=== PATIENT | female | born 1985 | race Caucasian/White ===

== ENCOUNTER 2022-04-26 11:14 | Inpatient (IN) | payer OTHER ==
[2022-04-26] MEDS ORDERED: SODIUM CHLORIDE 0.9% 1,000 ML IV STA (11:31)
[2022-04-26] MEDS ORDERED: SODIUM CHLORIDE 0.9% 1,000 ML IV ONE (11:32)
--- NOTE | 2022-04-26 11:53 | ED ---
General Adult HPI - General Source: patient, RN notes reviewed Mode of arrival: ambulatory Limitations: no limitations <Mila Case - Last Filed: 04/26/22 19:02> <Ashley Corrales - Last Filed: 04/27/22 04:01> <Tanner Rojas - Last Filed: 04/27/22 07:37> - General Chief complaint: Alcohol Stated complaint: sent by [facility] to sober up Time Seen by Provider: 04/26/22 11:30 - History of Present Illness Initial comments: 36 year old female with past medical history of Etoh abuse presents for the emergency department for alcohol withdrawal. She reports she attempted to check into [facility], however they did not want to accept her due to her alcohol level being above 300. She reports she has tried to withdrawal twice before without success. She denies alcohol withdrawal seizures, auditory/visual hallucinations. She admits to drinking 1/4 of a fifth of [employer]. She typically drinks a fifth a day. Denies any other recreational drugs. Denies homicidal/suicidal thoughts. (Mila Case) - Related Data Home Medications Medication Instructions Recorded Confirmed No Known Home Medications 04/26/22 04/26/22 Allergies Allergy/AdvReac Type Severity Reaction Status Date / Time No Known Allergies Allergy Verified 04/26/22 14:13 Review of Systems ROS Other: All systems not noted in ROS Statement are negative. <Mila Case - Last Filed: 04/26/22 19:02> ROS Other: All systems not noted in ROS Statement are negative. <Ashley Corrales - Last Filed: 04/27/22 04:01> ROS Other: All systems not noted in ROS Statement are negative. <Tanner Rojas - Last Filed: 04/27/22 07:37> ROS Statement: Those systems with pertinent positive or pertinent negative responses have been documented in the HPI. Past Medical History Past Medical History: No Reported History History of Any Multi-Drug Resistant Organisms: None Reported Past Surgical History: Tonsillectomy Additional Past Surgical History / Comment(s): septoplasty. Past Psychological History: No Psychological Hx Reported, Anxiety Smoking Status: Never smoker Past Alcohol Use History: Daily, Heavy Past Drug Use History: Prescription Drug Abuse <Mila Case - Last Filed: 04/26/22 19:02> - Past Family History Mother Family Medical History: Liver Disease <Tanner Rojas - Last Filed: 04/27/22 07:37> General Exam Limitations: no limitations General appearance: alert, in no apparent distress Head exam: Present: atraumatic, normocephalic, normal inspection Eye exam: Present: normal appearance, PERRL, EOMI. Absent: scleral icterus, conjunctival injection, periorbital swelling ENT exam: Present: normal exam, mucous membranes moist Neck exam: Present: normal inspection. Absent: tenderness, meningismus, lymphadenopathy Respiratory exam: Present: normal lung sounds bilaterally. Absent: respiratory distress, wheezes, rales, rhonchi, stridor Cardiovascular Exam: Present: normal rhythm, tachycardia, normal heart sounds. Absent: systolic murmur, diastolic murmur, rubs, gallop, clicks GI/Abdominal exam: Present: soft, normal bowel sounds. Absent: distended, tenderness, guarding, rebound, rigid Extremities exam: Present: normal inspection Back exam: Present: normal inspection Neurological exam: Present: alert, oriented X3, CN II-XII intact Psychiatric exam: Present: normal affect, normal mood <Mila Case - Last Filed: 04/26/22 19:02> Limitations: altered mental status General appearance: in distress Head exam: Present: atraumatic, normocephalic, normal inspection Eye exam: Present: normal appearance, PERRL, EOMI. Absent: scleral icterus, conjunctival injection, periorbital swelling ENT exam: Present: normal exam, mucous membranes moist Neck exam: Present: normal inspection. Absent: tenderness, meningismus, lymphadenopathy Respiratory exam: Present: normal lung sounds bilaterally, respiratory distress. Absent: wheezes, rales, rhonchi, stridor Cardiovascular Exam: Present: tachycardia, normal heart sounds. Absent: systolic murmur, diastolic murmur, rubs, gallop, clicks GI/Abdominal exam: Present: soft, normal bowel sounds. Absent: distended, tenderness, guarding, rebound, rigid Extremities exam: Present: normal inspection, full ROM, normal capillary refill. Absent: tenderness, pedal edema, joint swelling, calf tenderness Back exam: Present: normal inspection Psychiatric exam: Present: normal affect, normal mood Skin exam: Present: warm, dry, intact, normal color. Absent: rash <Tanner Rojas - Last Filed: 04/27/22 07:37> Course <Tanner Rojas - Last Filed: 04/27/22 07:37> Vital Signs 04/26/22 04/26/22 04/26/22 11:22 16:50 22:12 Temperature 98 F Pulse Rate 130 H 112 H 114 H Respiratory 18 18 16 Rate Blood Pressure 149/99 149/113 150/114 O2 Sat by Pulse 95 96 98 Oximetry 04/27/22 04:00 Temperature Pulse Rate 82 Respiratory 20 Rate Blood Pressure 153/103 O2 Sat by Pulse 98 Oximetry - Reevaluation(s) Reevaluation #1: 04/27/22 07:27 Medical record is reviewed (Tanner Rojas) Reevaluation #2: 04/27/22 07:27 Patient has cardiac arrest in the emergency department I did intubate patient at the bedside Patient is found to be in ventricular fibrillation, cardiac arrest Patient is undergoes ACLS here in the emergency department Patient is placed on epinephrine and Levothroid to keep blood pressure Patient is accepted in the ICU (Tanner Rojas) - Consultations Consultation #1: ICU accepts the patient for admission secondary to cardiac arrest (Tanner Henry) Procedures - Intubation Laryngoscope: Leticia Size: 4 ET Tube Size: 7.5 ET Tube Uncuffed: No Tube Secured Location: teeth Tube Placement Confirmation: visualized tube passing through cords, equal breath sounds bilaterally, no breath sounds over epigastrium, confirmation by cap nometry Patient Tolerated Procedure: well Intubation Complications: none <Tanner Rojas - Last Filed: 04/27/22 07:37> Medical Decision Making - Lab Data Result diagrams: 04/26/22 12:02 04/26/22 12:02 <Mila Case - Last Filed: 04/26/22 19:02> - Lab Data Result diagrams: 04/26/22 12:02 04/26/22 12:02 <Ashley Corrales - Last Filed: 04/27/22 04:01> - Lab Data Result diagrams: 04/26/22 12:02 04/26/22 12:02 - Radiology Data Radiology results: report reviewed (Chest x-ray shows positive ET tube), image reviewed <MagalisyanickTanner Larry - Last Filed: 04/27/22 07:37> - Medical Decision Making Pt signed to Dr. Rivera for continuation of care. (Mila Case) Case signed out to myself at shift change. Was pt. sent in by a medical professional or institution? @ -No Did you speak to anyone other than the patient for history? @ -No Did you review nursing and triage notes? @ -Agree, accurate with regards to the patient's symptoms. Were old charts reviewed? @ -No Differential Diagnosis? @ --Sympathomimetic syndrome, alcohol intoxication, overdose, anti-muscarinic syndrome, serotonin syndrome, neuroleptic malignant syndrome, thyrotoxicosis, encephalitis, acute psychosis, hypoglycemia, trauma, sepsis. This is not meant to be an all-inclusive list. What testing was considered but not performed? (CT, X-rays, U/S, labs)? Why? @ -None What meds were considered but not given? Why? @ -None Did you discuss the management of the patient with other professionals? @ -Case discussed with Dr. Jeffries, who accepts the patient for admission. Did you reconcile home meds? @ -Yes Was critical care preformed (if so, how long)? @ -No Were there social determinants of health that impacted care today? How? (Homelessness, low income, unemployed, alcoholism, drug addiction, transportation, low edu. Level, literacy, decrease access to med. care, fci, rehab)? @ -Alcoholism, drug addiction Was there de-escalation of care discussed even if they declined? (Discuss DNR or withdrawal of care, Hospice)? @ -No What co-morbidities impacted this encounter? (DM, HTN, Smoking, COPD, CAD, Cancer, CVA, Hep., AIDS, mental health diagnosis, sleep apnea, morbid obesity)? @ -Polysubstance abuse Was patient admitted / discharged? @ -After I took over the patient, she continued to have tremors with active nausea and vomiting. She was sober at 2350 on 04/26. We had initially planned on having [facility] pick her up at 7 AM on 04/27 so she could be officially marilee stered and checked in for treatment. However, the patient continued to need to decline in terms of her withdrawal symptoms. Her CIWA score remained around 13- 14. Based on her deterioration and difficulty with controlling her symptoms, patient admitted to medicine for detox management. CIWA protocol remains in place. Drug Therapy requiring intensive monitoring for toxicity (Heparin, Nitro, Insulin, Cardizem)? @ -None Were any procedures done? @ -None Diagnosis/symptom? @ -alcohol withdrawals Acute, or Chronic, or Acute on Chronic? @ -acute Uncomplicated (without systemic symptoms) or Complicated (systemic symptoms)? @ -complicated Side effects of treatment? @ -Poor response or worsening of symptoms. Exacerbation, Progression, or Severe Exacerbation] @ -Not applicable Poses a threat to life or bodily function? @ -Yes (Ashley Corrales) 36 female admitted for significant alcohol withdrawal, delirium tremens. Patient did go into ventricular fibrillation arrest, was resuscitated according to ACLS, intubated and will be transferred to the ICU for further. (Tanner Rojas) - Lab Data Lab Results 04/26/22 04/26/22 04/26/22 Range/Units 12:02 12:02 12:02 WBC 5.8 (3.8-10.6) k/uL RBC 4.89 (3.80-5.40) m/uL Hgb 14.4 (11.4-16.0) gm/dL Hct 43.0 (34.0-46.0) % MCV 87.9 (80.0-100.0) fL MCH 29.4 (25.0-35.0) pg MCHC 33.4 (31.0-37.0) g/dL RDW 15.0 (11.5-15.5) % Plt Count 249 (150-450) k/uL MPV 7.8 Neutrophils % 69 % Lymphocytes % 22 % Monocytes % 5 % Eosinophils % 1 % Basophils % 2 % Neutrophils # 4.0 (1.3-7.7) k/uL Lymphocytes # 1.3 (1.0-4.8) k/uL Monocytes # 0.3 (0-1.0) k/uL Eosinophils # 0.0 (0-0.7) k/uL Basophils # 0.1 (0-0.2) k/uL Sodium 147 H (137-145) mmol/L Potassium 4.1 (3.5-5.1) mmol/L Chloride 102 (98-107) mmol/L Carbon Dioxide 29 (22-30) mmol/L Anion Gap 16 mmol/L BUN 10 (7-17) mg/dL Creatinine 0.65 (0.52-1.04) mg/dL Est GFR (CKD-EPI)AfAm >90 (>60 ml/min/1.73 sqM) Est GFR (CKD-EPI)NonAf >90 (>60 ml/min/1.73 sqM) Glucose 123 H (74-99) mg/dL Calcium 8.5 (8.4-10.2) mg/dL Magnesium 2.1 (1.6-2.3) mg/dL Total Bilirubin 1.8 H (0.2-1.3) mg/dL AST 488 H (14-36) U/L ALT 63 H (4-34) U/L Alkaline Phosphatase 342 H (38-126) U/L Total Protein 8.9 H (6.3-8.2) g/dL Albumin 5.0 (3.5-5.0) g/dL Urine Opiates Screen Not Detected (NotDetected) Ur Oxycodone Screen Not Detected (NotDetected) Urine Methadone Screen Not Detected (NotDetected) Ur Propoxyphene Screen Not Detected (NotDetected) Ur Barbiturates Screen Not Detected (NotDetected) U Tricyclic Antidepress Not Detected (NotDetected) Ur Phencyclidine Scrn Not Detected (NotDetected) Ur Amphetamines Screen Detected H (NotDetected) U Methamphetamines Scrn Not Detected (NotDetected) U Benzodiazepines Scrn Detected H (NotDetected) Urine Cocaine Screen Not Detected (NotDetected) U Marijuana (THC) Screen Detected H (NotDetected) Critical Care Time Critical Care Time: Yes Total Critical Care Time: 95 <Tanner Rojas - Last Filed: 04/27/22 07:37> Disposition <Mila Case - Last Filed: 04/26/22 19:02> <Ashley Corrales - Last Filed: 04/27/22 04:01> Is patient prescribed a controlled substance at d/c from ED?: No Time of Disposition: 07:35 <Tanner Rojas - Last Filed: 04/27/22 07:37> Clinical Impression: Alcohol withdrawal syndrome, Cardiac arrest, Ventricular fibrillation, Hypotension Disposition: ADMITTED IP TO THIS HOSP Condition: Critical
[2022-04-26 12:22] LABS: Basophils # (A) 0.1 k/uL (0-0.2); Basophils % (A) 2 %; Eosinophils % (A) 1 %; HGB 14.4 gm/dL (11.4-16.0); Lymphocytes # (A) 1.3 k/uL (1.0-4.8); Lymphocytes % (A) 22 %; MCH 29.4 pg (25.0-35.0); MCHC 33.4 g/dL (31.0-37.0); MCV 87.9 fL (80.0-100.0); Mean Platelet Volume 7.8; Monocytes # (A) 0.3 k/uL (0-1.0); Monocytes % (A) 5 %; Neutrophils % (A) 69 %; Platelet Count 249 k/uL (150-450); RBC 4.89 m/uL (3.80-5.40); WBC 5.8 k/uL (3.8-10.6)
[2022-04-26 12:34] LABS: ALT 63 U/L (4-34); African American GFR (CKD) >90 (>60 ml/min/1.73 sqM); Anion Gap 16 mmol/L; Blood Urea Nitrogen 10 mg/dL (7-17); Calcium 8.5 mg/dL (8.4-10.2); Carbon Dioxide 29 mmol/L (22-30); Chloride 102 mmol/L (98-107); Glucose 123 mg/dL (74-99); Non-African American GFR(CKD) >90 (>60 ml/min/1.73 sqM); Sodium 147 mmol/L (137-145); Total Bilirubin 1.8 mg/dL (0.2-1.3); Total Protein 8.9 g/dL (6.3-8.2)
[2022-04-26 12:35] LABS: AST 488 U/L (14-36); Alkaline Phosphatase 342 U/L (38-126); Magnesium 2.1 mg/dL (1.6-2.3); Potassium 4.1 mmol/L (3.5-5.1)
[2022-04-26 12:41] LABS: Amphetamine Screen,Urine Detected (NotDetected); Barbiturate Screen,Urine Not Detected (NotDetected); Benzodiazepines Screen,Urine Detected (NotDetected); Cocaine Screen,Urine Not Detected (NotDetected); Methadone Screen, Urine Not Detected (NotDetected); Opiate Screen,Urine Not Detected (NotDetected); Oxycodone Screen, Urine Not Detected (NotDetected); Phencyclidine Screen,Urine Not Detected (NotDetected); Tricyclic Antidepressant,Urine Not Detected (NotDetected); Urn Cannabinoid Scrn Detected (NotDetected)
[2022-04-26] MEDS ORDERED: IBUPROFEN 600 MG TAB PO STA ×2 (13:48→18:27)
[2022-04-26] MEDS ORDERED: LORazepam 2 MG/ML INJ IV STA (18:37)
[2022-04-26] MEDS ORDERED: ONDANSETRON 4 MG/2 ML VIAL IVP STA (20:24)
[2022-04-26] MEDS ORDERED: LORazepam 1 MG TAB PO PRN (20:42)
[2022-04-26] MEDS ORDERED: THIAMINE 100 MG/ML 2 ML VIAL IM STA (20:42)
[2022-04-26] MEDS ORDERED: LORazepam 2 MG/ML INJ IV PRN ×2 (20:42)
[2022-04-26] MEDS ORDERED: KETOROLAC 15 MG/ML 1 ML VIAL IVP STA (20:43)
[2022-04-26] MEDS: LORazepam 2 MG/ML INJ IV PRN (21:54)
[2022-04-26] MEDS ORDERED: PROPRANOLOL 10 MG TAB PO STA (23:34)
[2022-04-27] MEDS ORDERED: ACETAMINOPHEN IV (For NPO) 1,000 MG in EMPTY BAG 1 BAG IVPB ONE (01:30)
[2022-04-27] MEDS ORDERED: IBUPROFEN 400 MG TAB PO PRN (03:14)
[2022-04-27] MEDS ORDERED: KETOROLAC 15 MG/ML 1 ML VIAL IVP PRN (03:14)
[2022-04-27] MEDS ORDERED: ONDANSETRON 4 MG/2 ML VIAL IVP PRN (03:14)
[2022-04-27] MEDS ORDERED: NALOXONE 0.4 MG/ML 1 ML VIAL IV PRN (03:14)
--- NOTE | 2022-04-27 04:53 | P.HPIM ---
History of Present Illness H&P Date: 04/27/22 Patient is a 36-year-old female with a PMH of EtOH abuse who presents to the emergency room with complaints of alcohol withdrawal. The patient reports that she has been drinking a fifth of hard liquor daily for the past 2 years and that she is currently trying to quit. Reports that her last drink was 2-3 days ago, and that her shakiness and gradually worsened, which prompted her to come to the emergency room. She denied history of delirium tremens or alcohol withdrawal seizures. States that she is only once attempted to quit in the past which was unsuccessful due to worsening shakiness. She denied any additional complaints. He denied experiencing chest discomfort, shortness of breath, fever, chills, cough, nausea, vomiting, abdominal pain, diarrhea. In the emergency room, the patient's pulse upon presentation was 1:30. BP 149/99 and SpO2 95% on room air. EKG had revealed sinus a cardiac oral [address]/T-wave changes noted as reviewed by me. Laboratory evaluation was remarkable for urine tox positive for amphetamines, benzodiazepines, marijuana, and AST 48, ALT 63, total bilirubin 1.8, and sodium 147. Case was discussed in detail with the ED provider. The patient stated that she wishes to go to [facility] following discharge. Review of systems: Pertinent positives and negatives as discussed in HPI, a complete review of systems was performed and all other systems are negative. Physical examination: General: Tremulous female, no distress, appears at stated age, overweight Derm: no unusual rashes/lesions, warm Head: atraumatic, normocephalic, symmetric Eyes: EOMI, no lid lag, anicteric sclera, pupils equal round reactive to light ENT: Nose and ears atraumatic Neck: No cervical lymphadenopathy, trachea midline, supple Mouth: no lip lesion, mucus membranes moist Cardiovascular: S1S2 reg, no murmur, positive dorsalis pedis pulse bilateral, no edema Lungs: CTA bilateral, no rhonchi, no rales, no accessory muscle use Abdominal: soft, nontender to palpation, no guarding Ext: muscle strength 5 out of 5 in all 4 extremities grossly, no gross muscle atrophy, no contractures, Neuro: CN II-XI grossly intact, no gross focal neuro deficits, outstretched hand tremor noted with tongue fasciculations Psych: Alert, oriented, appropriate affect Assessment/plan Alcohol withdrawal -CIWA protocol -IV fluids -Thiamine -Monitor electrolytes -Cardiac monitoring -Fall precautions Polysubstance abuse -Strongly advised on importance of cessation DVT prophylaxis -Heparin subq The patient is admitted with an anticipated greater than 2 midnight stay for ev aluation of EtOH abuse CODE STATUS: Full Code Discussed with: Patient Anticipated discharge date: 2-[address]: [facility] Past Medical History Past Medical History: No Reported History History of Any Multi-Drug Resistant Organisms: None Reported Past Surgical History: Tonsillectomy Additional Past Surgical History / Comment(s): septoplasty. Past Psychological History: No Psychological Hx Reported, Anxiety Smoking Status: Never smoker Past Alcohol Use History: Daily, Heavy Past Drug Use History: Prescription Drug Abuse - Past Family History Mother Family Medical History: Liver Disease Medications and Allergies Home Medications Medication Instructions Recorded Confirmed Type No Known Home Medications 04/26/22 04/26/22 History Allergies Allergy/AdvReac Type Severity Reaction Status Date / Time No Known Allergies Allergy Verified 04/26/22 14:13 Physical Exam Vitals: Vital Signs Temp Pulse Resp BP Pulse Ox 04/27/22 04:00 82 20 153/103 98 04/26/22 22:12 114 H 16 150/114 98 04/26/22 16:50 112 H 18 149/113 96 04/26/22 11:22 98 F 130 H 18 149/99 95 Intake and Output 04/26/22 04/26/22 04/27/22 14:59 22:59 06:59 Other: Weight 72.575 kg Results CBC & Chem 7: 04/26/22 12:02 04/26/22 12:02 Labs: Abnormal Lab Results - Last 24 Hours (Table) 04/26/22 04/26/22 Range/Units 12:02 12:02 Sodium 147 H (137-145) mmol/L Glucose 123 H (74-99) mg/dL Total Bilirubin 1.8 H (0.2-1.3) mg/dL AST 488 H (14-36) U/L ALT 63 H (4-34) U/L Alkaline Phosphatase 342 H (38-126) U/L Total Protein 8.9 H (6.3-8.2) g/dL Ur Amphetamines Screen Detected H (NotDetected) U Benzodiazepines Scrn Detected H (NotDetected) U Marijuana (THC) Screen Detected H (NotDetected)
[2022-04-27 07:06] LABS: Glucose,Whole Blood 117 mg/dL (70-110)
[2022-04-27] MEDS ORDERED: DEXTROSE 5% IN WATER 100 ML with AMIODARONE 150 MG IV ONE (07:07)
[2022-04-27] MEDS ORDERED: DEXTROSE 5% IN WATER 250 ML with AMIODARONE 300 MG IV ONE (07:07)
[2022-04-27] MEDS: NOREPINEPHRINE 4 MG in SODIUM CHLORIDE 0.9% 250 ML IV ONE ×2 (07:15→13:39)
[2022-04-27] MEDS ORDERED: MIDAZOLAM HCL 50 MG in SODIUM CHLORIDE 0.9% 40 ML IV SCH (07:15)
[2022-04-27] MEDS ORDERED: AMIODARONE 360 MG in DEXTROSE 5% IN WATER 200 ML IV ONE ×2 (07:15)
[2022-04-27 07:27] LABS: African American GFR (CKD) >90 (>60 ml/min/1.73 sqM); Anion Gap 15 mmol/L; Blood Urea Nitrogen 4 mg/dL (7-17); Calcium 8.2 mg/dL (8.4-10.2); Carbon Dioxide 23 mmol/L (22-30); Chloride 100 mmol/L (98-107); Glucose 130 mg/dL (74-99); Non-African American GFR(CKD) >90 (>60 ml/min/1.73 sqM); Sodium 138 mmol/L (137-145)
[2022-04-27 07:29] LABS: Potassium 5.6 mmol/L (3.5-5.1)
[2022-04-27] MEDS ORDERED: propofoL 100 ML IV ONE (07:31)
[2022-04-27 07:35] LABS: Glucose,Whole Blood 391 mg/dL (70-110)
--- NOTE | 2022-04-27 07:39 | XR ---
EXAMINATION TYPE: XR chest 1V portable DATE OF EXAM: 04/27/2022 Comparison: None Clinical History: 36-year-old female coded, intubation Findings: ET tube tip 2.7 cm from the va. Heart likely upper limits of normal in size, likely accentuated d ue to portable technique. Mild interstitial prominence probably due to low lung volumes at the time o f exposure. There may be some mild strandy areas of atelectasis. No rosa consolidation, pneumothorax , or pleural effusion. Impression: ET tube tip 2.7 cm from the va, satisfactory. Hypoventilatory changes.
[2022-04-27] MEDS ORDERED: HEPARIN SODIUM,PORCINE/PF 5,000 UNIT/0.5 ML SYRINGE SQ SCH (08:00)
--- NOTE | 2022-04-27 08:06 | XR ---
EXAMINATION TYPE: XR chest 1V portable DATE OF EXAM: 04/27/2022 8:01 AM COMPARISON: Chest radiographs from 04/27/2022 TECHNIQUE: XR chest 1V portable Frontal view of the chest. CLINICAL INDICATION:Female, 36 years old with history of OG Tube placement; FINDINGS: Lungs/Pleura: There is no evidence of pleural effusion, focal consolidation, or pneumothorax. Similar elevation the right hemidiaphragm. Pulmonary vascularity: Unremarkable. Heart/mediastinum: Cardiomediastinal silhouette is unremarkable. Musculoskeletal: No acute osseous pathology. Other findings: None Lines/Tubes: Endotracheal tube with distal tip 5.1 cm above the va OG tube projecting under the diaphragm with distal tip not included on the [id number]. IMPRESSION: 1. OG tube projecting under the diaphragm with distal tip not included on the [id number], likely i n appropriate position. 1. Stable endotracheal tube.
--- NOTE | 2022-04-27 08:13 | P.CNPUL ---
History of Present Illness Consult date: 04/27/22 Chief complaint: cardiac arrest History of present illness: This is a 36-year-old female patient, and alcoholic was trying to admit herself to [facility] for further rehabilitation. The patient drinks a fifth of hard liquor on a daily basis and she's been doing that for many years. She went to [facility] and she was declined and she was sent to our emergency department with acute all: Intoxication. Initially, the patient came to our ED on 04/26/2022 at 11:49 AM. The patient was seen in the emergency department. The patient had stayed in the emergency throughout the day and earlier this morning at around 6:54 AM, the patient was found to be unresponsive. I'm not sure the patient was on the classroom monitor. The patient was initially in asystole. ACLS protocol was done and the patient went into V. fib and PEA and ultimately into sinus bradycardia and the cold lasted for approximately 20 minutes between 6:54 AM and 7:12 AM. There was return of spontaneous circulation. The patient received a total of 4 doses of epinephrine, 1 dose of atropine, 2 doses of bicarb, a total of 450 mg of amiodarone was given and 2 doses of D50 insulin. After arrival to the ICU, the patient was started on propofol as the patient was walking on the 2. Currently she is calm and comfortable. No seizure activity has been noted. No significant secretions from the orotracheal tube. The patient's chest x-ray was done and is essentially clear and the tube is in a good location. She is hemodynamically hypotensive Levothroid is running at 0.1 mcg/kg/m and she is also on normal saline at the rate of 100 mL an hour. She is also on amiodarone at 1 mg/m and Versed drip running at 1 mg an hour. She is on assist-control mode of mechanical ventilation. At this point she is on assist control at the rate of 18, tidal volume of 650, FiO2 of 100% and a PEEP of 5. Blood gas has not been done yet. Urine drug screen was positive for amph etamine, benzodiazepines and marijuana. LFTs were abnormal with elevated AST consistent with alcoholic liver disease. Review of Systems ROS unobtainable: due to endotracheal tube Past Medical History Past Medical History: No Reported History History of Any Multi-Drug Resistant Organisms: None Reported Past Surgical History: Tonsillectomy Additional Past Surgical History / Comment(s): septoplasty. Past Psychological History: No Psychological Hx Reported, Anxiety Smoking Status: Never smoker Past Alcohol Use History: Daily, Heavy Past Drug Use History: Prescription Drug Abuse - Past Family History Mother Family Medical History: Liver Disease Medications and Allergies Home Medications Medication Instructions Recorded Confirmed Type No Known Home Medications 04/26/22 04/26/22 History Allergies Allergy/AdvReac Type Severity Reaction Status Date / Time No Known Allergies Allergy Verified 04/26/22 14:13 Physical Exam Vitals: Vital Signs Temp Pulse Resp BP Pulse Ox FiO2 04/27/22 07:54 100 04/27/22 07:53 100 04/27/22 07:22 69 71/42 04/27/22 07:20 70/30 04/27/22 07:16 51 L 54/37 04/27/22 04:00 82 20 153/103 98 04/26/22 22:12 114 H 16 150/114 98 04/26/22 16:50 112 H 18 149/113 96 04/26/22 11:22 98 F 130 H 18 149/99 95 Patient is sedated intubated on a mechanical ventilator currently on a combination of propofol and Versed. Follow chicken tube and orogastric tube are both in place. Head exam was generally normal. There was no scleral icterus or corneal arcus. Mucous membranes were moist. Neck was supple and without jugular venous distension, thyromegaly, or carotid bruits. Carotids were easily palpable bilaterally. There was no adenopathy. Lungs were clear to auscultation and percussion, and with normal diaphragmatic excursion. No wheezes or rales were noted. Cardiac exam revealed the PMI to be normally situated and sized. The rhythm was regular and no extrasystoles were noted during several minutes of auscultation. The first and second heart sounds were normal and physiologic splitting of the second heart sound was noted. There were no murmurs, rubs, clicks, or gallops. Abdomen is slightly distended. Soft. There is no evidence of any ascites. No direct tenderness or rebound tenderness or guarding. No organomegaly. Examination of the extremities revealed easily palpable radial, femoral and pedal pulses. There was no cyanosis, clubbing or edema. Examination of the skin revealed no evidence of significant rashes, suspicious appearing nevi or other concerning lesions. Neurologically, the patient is heavily sedated with a combination of propofol and Versed. Pupils are unequal. Left pupil is around 4 mm in size, right pupil is round 3 mm in size, no facial asymmetry. There is positive cough reflex and a gag reflex. Motor function cannot be assessed. Sensory functions cannot be assessed. The patient barely withdraws slightly painful stimulation. Babinski's are flat no clonus and reflexes are quite depressed in all 4 e xtremities. Results - Laboratory Findings CBC and BMP: 04/26/22 12:02 04/27/22 06:48 Abnormal lab findings: Abnormal Labs 04/26/22 04/26/22 04/27/22 12:02 12:02 06:48 Sodium 147 H Potassium 5.6 H BUN 4 L Creatinine 0.43 L Glucose 123 H 130 H POC Glucose (mg/dL) Calcium 8.2 L Total Bilirubin 1.8 H AST 488 H ALT 63 H Alkaline Phosphatase 342 H Total Protein 8.9 H Ur Amphetamines Screen Detected H U Benzodiazepines Scrn Detected H U Marijuana (THC) Screen Detected H 04/27/22 04/27/22 06:59 07:34 Sodium Potassium BUN Creatinine Glucose POC Glucose (mg/dL) 117 H 391 H Calcium Total Bilirubin AST ALT Alkaline Phosphatase Total Protein Ur Amphetamines Screen U Benzodiazepines Scrn U Marijuana (THC) Screen - Diagnostic Findings Chest x-ray: image reviewed Assessment and Plan Plan: Acute cardiac arrest, the exact circumstances are not known. The patient presented to the emergency department initially with acute all: Intoxication. The patient was admitted to the hospital 11 AM on 04/26/2022. The cold occurred on 04/27/2022 at around 6:54 AM in the down time it is approximately 20 minutes. During the code, the patient went into asystole, V. fib, and PEA and ultimately sinus bradycardia. Currently hypotensive on pressors. Noted the patient was given a combination of Valium and Ativan in the emergency department at around 2 AM and 4 AM. No seizures have been noted. Acute hypotension post cardiac arrest and the patient is currently on norepinephrine infusion thiamine and folate IV Protonix History of alcoholism Acute alcohol intoxication at time of admission to hospital Mild hyperkalemia with a potassium level of 5.6 from this morning Polysubstance abuse with urine drug screen is positive for benzodiazepines, marijuana and amphetamine. noted the patient also received Ativan and Valium in the emergency department. Alcoholic liver disease/hepatitis with abnormal LFTs and elevated AST/ALT Plan Keep the patient on sedation and continue propofol for now and gradually wean of the Versed drip I am concerned of the unequal pupil and the patient will need a stat CAT scan of the brain without contrast Obtain an EEG Start The patient on Keppra 1 g every 12 hours in consultation for underlying seizures due to alcohol withdrawal Obtain neurology consultation Obtain a stat echocardiogram Obtain a blood gas Check lactic acid levels Continue IV fluids with normal saline at the rate of 100 mL an hour and wean off pressors Chest x-ray showed no evidence of any aspiration Repeat electrolytes with special attention to a potassium level and awaiting a morning CBC. Also check cardiac enzymes, BNP, CPK, troponins We will establish a triple-lumen catheter and arterial line Put the patient on thiamine 100 mg IV every 24 hours Put the patient on folate IV Protonix Lovenox 40 mg subcu for DVT prophylaxis as long as there is no acute FACETER bleeding based on a stat CAT scan Condition is critical and we'll continue to follow. Time with Patient: Greater than 30
[2022-04-27 08:31] LABS: HCT 33.1 % (34.0-46.0); Hypochromasia Moderate; MCH 29.4 pg (25.0-35.0); MCHC 31.4 g/dL (31.0-37.0); Mean Platelet Volume 10.4; Platelet Count 142 k/uL (150-450); RBC 3.54 m/uL (3.80-5.40); RDW 15.1 % (11.5-15.5)
[2022-04-27 08:36] LABS: VBG PH 7.41 (7.31-7.41)
--- NOTE | 2022-04-27 08:43 | P.PCN ---
Date of Procedure: 04/27/22 Preoperative Diagnosis: cardiac arrest Postoperative Diagnosis: cardiac arrest Procedure(s) Performed: central line arterial line Anesthesia: local Surgeon: Rufino Houston Estimated Blood Loss (ml): 0 Operative Findings: c Indication: Hemodynamic monitoring/Intravenous access. A time-out was completed verifying correct patient, procedure, site, positioning, and implant(s) or special equipment if applicable. The patient was placed in a dependent position appropriate for central line placement based on the vein to be cannulated. The patient s Left chest was prepped and draped in sterile fashion. 1% Lidocaine was used to anesthetize the surrounding skin area. A triple lumen 9F Cordis catheter was introduced into the left subclavian vein using Seldinger technique. The catheter was threaded smoothly over the guide wire and appropriate blood return was obtained. Each lumen of the catheter was evacuated of air and flushed with sterile saline. The catheter was then sutured in place to the skin and a sterile dressing applied. Perfusion to the extremity distal to the point of catheter insertion was checked and found to be adequate. The patient tolerated the procedure well and there were no complications. Indication: Hemodynamic monitoring. A time-out was completed verifying correct patient, procedure, site, positioning, and implant(s) or special equipment if applicable. Shady s test was performed to ensure adequate perfusion. The patient s right groin was prepped and draped in sterile fashion. 1% Lidocaine was used to anesthetize the area. An 18G Arrow arterial line was introduced into the femoral artery. The catheter was threaded over the guide wire and the needle was removed with appropriate pulsatile blood return. Blood loss was minimal. The catheter was then sutured in place to the skin and a sterile dressing applied. Perfusion to the extremity distal to the point of catheter insertion was checked and found to be adequate. The patient tolerated the procedure well and there were no complications.
[2022-04-27 08:52] LABS: HGB 10.4 gm/dL (11.4-16.0)
[2022-04-27 08:53] LABS: MCV 93.5 fL (80.0-100.0)
[2022-04-27] MEDS ORDERED: FOLIC ACID 1 MG TAB PO SCH (09:00)
[2022-04-27] MEDS ORDERED: ENOXAPARIN 40 MG/0.4 ML SYRINGE SQ SCH (09:00)
[2022-04-27] MEDS ORDERED: PANTOPRAZOLE 40 MG/10 ML VIAL IV SCH (09:00)
[2022-04-27] MEDS ORDERED: levETIRAcetam IV 1,000 MG in SALINE 1 100ML.BAG IVPB SCH (09:00)
--- NOTE | 2022-04-27 09:08 | XR ---
EXAMINATION TYPE: XR chest 1V confirm line plcmt DATE OF EXAM: 04/27/2022 9:01 AM COMPARISON: Chest radiographs from 04/27/2022 TECHNIQUE: XR chest 1V confirm line plcmt Frontal view of the chest. CLINICAL INDICATION:Female, 36 years old with history of Line placement; FINDINGS: Lungs/Pleura: There is no evidence of pleural effusion, focal consolidation, or pneumothorax. Elevat ion of the right hemidiaphragm redemonstrated. Pulmonary vascularity: Unremarkable. Heart/mediastinum: Cardiomediastinal silhouette is unremarkable. Musculoskeletal: No acute osseous pathology. Other findings: None Lines/Tubes: Endotracheal tube is in stable position. Orogastric tube with its distal tip coursing below the diaphragm and not visualized on the field of v iew. Left subclavian approach catheter with distal tip in the right atrium. IMPRESSION: 1. Interval placement of left subclavian approach catheter with distal tip in the right atrium. No p neumothorax. 2. Remaining support tubes are stable.
[2022-04-27 09:11] LABS: ABG Base Excess -2.3 mmol/L; ABG HCO3 22 mmol/L (21-25); ABG PCO2 38 mmHg (35-45); ABG PH 7.38 (7.35-7.45); Allen Test Performed? Yes
[2022-04-27 09:13] LABS: ABG PO2 >420 mmHg (83-108)
[2022-04-27] MEDS ORDERED: SODIUM CHLORIDE 0.9% 2,000 ML IV ONE ×2 (09:19→11:13)
[2022-04-27] MEDS: IPRATROPIUM-ALBUTEROL 3 ML NEB INHALATION SCH ×3 (09:21→16:18)
[2022-04-27] MEDS ORDERED: FUROSEMIDE 10 MG/ML 4 ML VIAL IV STA (11:14)
[2022-04-27] MEDS ORDERED: SALINE IV ONE (11:41)
[2022-04-27] MEDS ORDERED: MANNITOL IV ONE (11:41)
--- NOTE | 2022-04-27 11:52 | CT ---
EXAMINATION TYPE: CT brain wo con CT DLP: 1082.4 mGycm, Automated exposure control for dose reduction was used. DATE OF EXAM: 04/27/2022 11:33 AM COMPARISON: None. CLINICAL INDICATION:Female, 36 years old with history of altered mental status, ams TECHNIQUE: Brain: Multiple axial CT images of the brain were obtained without IV contrast. Coronal and sagittal reformats reviewed. FINDINGS: Brain: Extra-axial spaces: Hyperdense extra-axial hemorrhage along the left cerebral convexity with tracking along the left tentorium and anterior and posterior falx, and middle cranial fossa. Ventricular system: Effacement of the left lateral ventricle and to the lesser degree the right later al ventricle. Cerebral parenchyma: No acute intraparenchymal hemorrhage. The vergara-white junction is well differenti ated. Cerebellum: Unremarkable. Mass effect: There is mass effect with effacement of the left low convexity peripheral sulci. Midline shift to the right of 1.4 cm. Intracranial vasculature: unremarkable Soft tissues: Normal. Calvarium/osseous structures: No depressed skull fracture. Paranasal sinuses and mastoid air cells: Clear Visualized orbits: Orbital contents are intact. IMPRESSION: Acute left subdural hematoma with mass effect and midline shift to the right of 1.4 cm. Findings called to and discussed with Dr. Cook at 11:47 AM on 04/27/2022.
--- NOTE | 2022-04-27 12:13 | P.EN ---
Patient found to be unresponsive at 0653 on 04/27/21 while in the ED. Patient found to be pulseless. ED attending present at bedside. CPR done on and off since patient had ROSC intermittently. 2 times shock delivered for V. fib rhythm. Epi 4. Amiodarone 300 bolus 1, amiodarone 150 bolus 1, bicarb 2, atropine 1, and magnesium 1. CPR stopped due to ROSC at 0712. Patient intubated during code. Patient transferred to the ICU on pressors.
--- NOTE | 2022-04-27 12:50 | CA ---
Transthoracic Echo Report Name: Christina Wood Age: 36 Gender: F : 1985 Exam Date: 04/27/2022 09:56 Exam Location: [facility] Ht (in): 64 Wt (lb): 160 Ordering Physician: Jomar Burks Attending/Referring Phys: [employer] Plow Operator Aarti Vidales RDCS Procedure CPT: Indications: Cardiac Arrest Cardiac Hx: Technical Quality: Fair Contrast 1: Total Dose (mL): Contrast 2: Total Dose (mL): MEASUREMENTS (Male / Female) Normal Values 2D ECHO LV Diastolic Diameter PLAX 3.5 cm 4.2 - 5.9 / 3.9 - 5.3 cm LV Systolic Diameter PLAX 2.5 cm IVS Diastolic Thickness 1.4 cm 0.6 - 1.0 / 0.6 - 0.9 cm LVPW Diastolic Thickness 1.4 cm 0.6 - 1.0 / 0.6 - 0.9 cm LV Relative Wall Thickness 0.8 RV Internal Dim ED PLAX 3.0 cm LA Volume 27.1 cm??? 18 - 58 / 22 - 52 cm??? M-MODE Aortic Root Diameter MM 2.5 cm LA Systolic Diameter MM 3.1 cm LA Ao Ratio MM 1.2 AV Cusp Separation MM 1.8 cm DOPPLER AV Peak Velocity 86.8 cm/s AV Peak Gradient 3.0 mmHg AI Peak Velocity 431.6 cm/s AI Peak Gradient 74.5 mmHg AI Pressure Half Time 852.7 ms LVOT Peak Velocity 66.8 cm/s LVOT Peak Gradient 1.8 mmHg MV Area PHT 3.7 cm??? Mitral E Point Velocity 56.3 cm/s Mitral A Point Velocity 36.2 cm/s Mitral E to A Ratio 1.6 MV Deceleration Time 203.0 ms MV E' Velocity 4.4 cm/s Mitral E to MV E' Ratio 12.8 TR Peak Velocity 190.8 cm/s TR Peak Gradient 14.6 mmHg Right Ventricular Systolic Press 18.9 mmHg FINDINGS Left Ventricle Moderately increased left ventricular wall thickness. Reduced global left ventricular systolic function. Left ventricular ejection fraction is estimated at 35 %. Right Ventricle Normal right ventricular size. Right ventricular systolic pressure within normal limits. Right Atrium Normal right atrial size. Left Atrium Normal left atrial size. Mitral Valve Structurally normal mitral valve. Trace to mild mitral regurgitation. Aortic Valve Trileaflet aortic valve. No aortic stenosis. Mild aortic regurgitation. Tricuspid Valve Structurally normal tricuspid valve. Mild tricuspid regurgitation. Pulmonic Valve Trace pulmonic regurgitation. Pericardium No pericardial effusion. Aorta Normal size aortic root and proximal ascending aorta. CONCLUSIONS Moderate increased left ventricular wall thickness Left ventricular ejection fraction 35% RVSP 18 Mild mitral regurgitation Mild aortic regurgitation No pericardial effusion Previewed by: Dr. Yevgeniy Barriga DO (Electronically Signed) Final Date: 27 April 2022 12:49
[2022-04-27] MEDS ORDERED: SODIUM CHLORIDE 3%(HYPERTONIC) 500 ML IV SCH (13:00)
--- NOTE | 2022-04-27 13:15 | CT ---
EXAMINATION TYPE: CT angio head neck CT DLP: 462.7 mGycm, Automated exposure control for dose reduction was used. DATE OF EXAM: 04/27/2022 12:49 PM COMPARISON: CT brain of the same date. CLINICAL INDICATION:Female, 36 years old with history of bleed. rule out aneurysm vs avm; PHH, unres ponsive TECHNIQUE: Axially acquired helical CT angiogram of the head and neck was obtained with contrast util izing 85 cc of Isovue-370 administered intravenously. Axial images are supplemented with 3D reconstru ctions which were post-processed at an independent workstation. NASCET criteria used. FINDINGS: CTA HEAD: There is similar left subdural hematoma overlying the cervical convexity with extension along the lef t tentorium and into the left middle cranial fossa. Similar midline shift to the right of 1.4 cm with mass effect and effacement of the left lateral ventricle. Dilation of the right temporal horn. The visualized portions of the internal carotid arteries, middle cerebral arteries, anterior cerebral arteries, and posterior cerebral arteries are patent. The left MCA distribution peripheral vessels a re more diminutive compared to the right due to surrounding mass effect. The basilar and vertebral arteries are patent. CTA NECK: Right Carotid System: The common carotid artery and external carotid artery are patent. The carotid bifurcation demonstrate s no evidence of hemodynamically significant stenosis. The remaining portions of the internal carotid artery demonstrate normal size without significant narrowing. Left Carotid System: The common carotid artery and external carotid artery are patent. The carotid bifurcation demonstrate s no evidence of hemodynamically significant stenosis. The remaining portions of the internal carotid artery demonstrate normal size without significant narrowing. Vertebral arteries are patent without evidence hemodynamically significant stenosis. There is a three-vessel aortic arch. The origins of the great vessels are patent. No evidence of hemo dynamically significant stenosis. Reticular patchy airspace opacities within the posterior right upper lobe likely representing atelect asis. Partial visualization of NG and endotracheal tubes. Left subclavian approach catheter identifie d. Left neck fat stranding identified with asymmetric enlarged left SCM and pulmonary vessels without definitive active extravasation. IMPRESSION: 1. No evidence of dissection of the cervical internal carotid arteries or vertebral arteries or any e vidence of significant stenosis at the carotid bifurcations. 2. No evidence of high-grade stenosis or intracranial aneurysm. 3. Redemonstration of left subdural hematoma with midline shift to the right a 1.4 cm. Dilation of t he right temporal horn suggestive of uncal herniation. 4. Asymmetric enlargement of the left SCM with surrounding fat stranding and prominent vessel likely representing an intramuscular hematoma. No definitive active extravasation. Findings called to and discussed with Dr. Cook at 1:10 PM on 04/27/2022.
[2022-04-27] MEDS ORDERED: AMIODARONE 450 MG in DEXTROSE 5% IN WATER 250 ML IV SCH ×2 (13:30)
[2022-04-27 13:37] LABS: INR 1.5 (<1.2); Partial Thromboplastin Time 27.4 sec (22.0-30.0); Prothrombin Time 14.7 sec (9.0-12.0)
--- NOTE | 2022-04-27 13:57 | P.CNNES ---
History of Present Illness Consult date: 04/27/22 Requesting physician: Rufino Houston Reason for Consult: brain bleed History of Present Illness: This is a 36-year-old woman with all call abuse who presented emergency department because of alcohol withdrawal. History is obtained from primary team and medical record. Neurology is consulted for brain bleed. Patient presented to our facility on 04/26/2022 around 11:14 PM. It seems that the patient notified the primary team that the she drinks fifth of hard liquor daily for the past 2 years and is trying to quit and her last drink was 2-3 days prior to presenting to the hospital. She presented with shakiness which gradually worsening. And she denies of any additional complaints. She denies of any alcohol withdrawal seizure. Also she denied of any nausea vomiting abdominal pain. While the ED the primary team evaluated here and she was responding around 4ish a.m. on 04/27/2022 and she wished to go to [place] following discharge. She had no focal deficits ordered by the primary team around that t donn. At that time her workup was AST was 488 and ALT is 63 area and urine drug screen is positive for amphetamine, benzoyl and marijuana. Then possibly around 5 AM today she was last seen normal by the nurse upon reviewing the medical record using the bedside commode. Around 6:53 AM today a engineering laboratory technician went in to draw blood and patient was unresponsive. On the last normal state exactly. It is reported she was asystole. And the patient went into V. fib MPA and ultimately into sinus bradycardia and is seems the code lasted from 654 a.m. to 712. According to the primary team. She coded twice she coded 653 and had lost at 7:02 AM then coded again at 710 and had lost at 7:12 AM. He seems the patient received 4 doses of epinephrine 1 dose of atropine toed 2 doses of bicarbonate as well as received amiodarone and D50 insulin. As a result patient was intubated was placed on propofol and the per the nurse her left pupil is dilated and nonreactive I not withdrawn any extremities. Patient did not have any seizure-like activity noted. Patient blood pressure was severely low 54/37 as a result and the patient is on norepinephrine As a result CT of the head was done and it's reported as acute left subdural hematoma with mass effect and midline shift to the right of 1.4 cm. Was notifie d of the finding around 11:47 AM today. Personally reviewed the CT of the head and I agree it's a large left subdural with a large midline shift with hydrocephaly over lateral ventricle especially the right posterior lateral horn on lateral ventricle ventricle. Patient has patent 4th ventricle while 3rd ventricle is severely narrow. I was notified that the patient is not on any antiplatelets, anticoagulation. Unsure about any falls but again she was responding in our ED and was reported no focal deficit that is reported. Other workup during this hospital visit consisted of: Initial CBC with differential is unremarkable but the repeat is a white blood cell is 13.0 platelet is 142 Initial POC glucose is 123. Was current sodium is 137 CK level as the 391 EKG is reported sinus tachycardia. Nonspecific T wave abnormality. Abnormal rhythm EKG. Review of Systems Review of system is limited with apparent positive and negative aspiration GI. Past Medical History Past Medical History: No Reported History History of Any Multi-Drug Resistant Organisms: None Reported Past Surgical History: Tonsillectomy Additional Past Surgical History / Comment(s): septoplasty. Past Psychological History: No Psychological Hx Reported, Anxiety Smoking Status: Never smoker Past Alcohol Use History: Daily, Heavy Past Drug Use History: Prescription Drug Abuse - Past Family History Mother Family Medical History: Liver Disease Medications and Allergies Home Medications Medication Instructions Recorded Confirmed Type No Known Home Medications 04/26/22 04/26/22 History Allergies Allergy/AdvReac Type Severity Reaction Status Date / Time No Known Allergies Allergy Verified 04/26/22 14:13 Physical Examination - Vital Signs Vital Signs: Vital Signs Temp Pulse Resp BP Pulse Ox FiO2 04/27/22 12:58 64 20 04/27/22 12:47 63 21 04/27/22 12:33 40 04/27/22 11:33 40 04/27/22 10:44 40 04/27/22 10:30 76 22 110/88 100 40 04/27/22 10:00 79 20 104/80 100 04/27/22 09:44 40 04/27/22 09:33 75 18 04/27/22 09:30 79 18 122/88 100 04/27/22 09:22 77 25 H 04/27/22 09:20 40 04/27/22 09:17 60 04/27/22 09:00 74 22 111/91 100 100 04/27/22 08:45 72 22 111/74 100 04/27/22 08:30 75 22 102/55 100 04/27/22 08:15 64 20 87/62 100 04/27/22 08:10 64 18 91/50 100 04/27/22 08:00 96.2 F L 65 18 82/51 100 100 04/27/22 07:53 100 04/27/22 07:50 66 19 97/71 100 04/27/22 07:40 29 H 95/74 100 04/27/22 07:34 20 123/65 100 04/27/22 07:22 69 71/42 04/27/22 07:20 70/30 04/27/22 07:16 51 L 54/37 04/27/22 04:00 82 20 153/103 98 04/26/22 22:12 114 H 16 150/114 98 04/26/22 16:50 112 H 18 149/113 96 Intake and Output 04/26/22 04/27/22 04/27/22 22:59 06:59 14:59 Intake Total 17.195 Output Total 35 Balance -17.805 Intake: Intake, IV Titration 17.195 Amount Midazolam HCl 50 mg In 3.75 Sodium Chloride 0.9% 40 ml @ 1 MG/HR 1 mls/hr IV .Q24H [facility] Rx#:[id number] Norepinephrine 4 mg In 6.913 Sodium Chloride 0.9% 250 ml @ 0.03 MCG/KG/MIN 8. 295 mls/hr IV .Q24H [facility] Rx#:[id number] propofoL 1,000 mg In 6.532 Empty Bag 1 bag @ 15 MCG/ KG/MIN 6.532 mls/hr IV . [id number] [facility] Rx#:[id number] Output: Urine 35 ABP, PAP, CO, CI - Last 8 Hours Arterial Blood Pressure 99/71 Arterial Blood Pressure 102/69 Arterial Blood Pressure 111/76 Arterial Blood Pressure 119/79 Arterial Blood Pressure 129/83 GENERAL: The patient is lying in bed and does not appear in acute distress. HENT: No evidence of head trauma or bruise. CHEST: The heart rate is regular rate rhythm. No murmurs to auscultation. LUNG: Clear to auscultation bilaterally no wheezing noted throughout. Not labored breathing. ABDOMEN/GI: Bowel sounds present in all 4 quadrants. No tenderness to palpation throughout. NEUROLOGICAL: Limited because of patient's condition. Is on IV Propofol. Received Ativan. Higher mental function: The patient is comatose. GCS (E1, VT1, M2). Not following commands. Cranial nerves: The pupils are round, unequal, right is 4-5mm and left is 6-7mm and right is reactive to light while left is sluggishly reactive to light. No corneal reflex bilaterally. Primary gaze is midline. Negative occulocpehalic reflex. No facial weakness. Is breathing over the vent. With suction she has one time episode of weak cough but otherwise having extension posture of the left upper extremity. Motor: The strength is has extensor posture of the left upper extremity with painful stimuli. Otherwise no movement noted. Decrease tone throughout. Normal bulk. Cerebellum: Unable to assess. Sensation: Hard to assess light touch but seems to respond to some over the left upper. Reflexes (right/left): 1+ throughout. Plantars are mute bilaterally. Results - Laboratory Findings CBC and BMP: 04/27/22 08:02 04/27/22 13:00 Abnormal Lab Findings: Abnormal Labs 04/26/22 04/26/22 04/27/22 12:02 12:02 06:48 WBC RBC Hgb Hct Plt Count ABG pO2 ABG O2 Saturation ABG Lactic Acid VBG pCO2 VBG HCO3 Sodium 147 H Potassium 5.6 H BUN 4 L Creatinine 0.43 L Glucose 123 H 130 H POC Glucose (mg/dL) Calcium 8.2 L Total Bilirubin 1.8 H AST 488 H ALT 63 H Alkaline Phosphatase 342 H Creatine Kinase Total Protein 8.9 H Ur Amphetamines Screen Detected H U Benzodiazepines Scrn Detected H U Marijuana (THC) Screen Detected H 04/27/22 04/27/22 04/27/22 06:59 07:34 08:02 WBC RBC Hgb Hct Plt Count ABG pO2 ABG O2 Saturation ABG Lactic Acid VBG pCO2 27 L VBG HCO3 17 L Sodium Potassium BUN Creatinine Glucose POC Glucose (mg/dL) 117 H 391 H Calcium Total Bilirubin AST ALT Alkaline Phosphatase Creatine Kinase Total Protein Ur Amphetamines Screen U Benzodiazepines Scrn U Marijuana (THC) Screen 04/27/22 04/27/22 04/27/22 08:02 08:50 08:50 WBC 13.0 H RBC 3.54 L Hgb 10.4 L D Hct 33.1 L Plt Count 142 L ABG pO2 ABG O2 Saturation ABG Lactic Acid 9.9 H* VBG pCO2 VBG HCO3 Sodium Potassium BUN Creatinine Glucose POC Glucose (mg/dL) Calcium Total Bilirubin AST ALT Alkaline Phosphatase Creatine Kinase 391 H Total Protein Ur Amphetamines Screen U Benzodiazepines Scrn U Marijuana (THC) Screen 04/27/22 09:06 WBC RBC Hgb Hct Plt Count ABG pO2 >420 H ABG O2 Saturation 100.0 H ABG Lactic Acid VBG pCO2 VBG HCO3 Sodium Potassium BUN Creatinine Glucose POC Glucose (mg/dL) Calcium Total Bilirubin AST ALT Alkaline Phosphatase Creatine Kinase Total Protein Ur Amphetamines Screen U Benzodiazepines Scrn U Marijuana (THC) Screen Assessment and Plan Assessment: Acute Large subdural hematoma with significant midline shift (1.4 cm). Unknown exact cause. Unsure if she had head trauma or due to spontaneous due to alcohol and drug use (Amphetamine). Hydrocephalus due to above Acute cardiac arrest and unknown last normal. She was found in arrest at 6:53 AM today and was coded for around 20 minutes (it seems coded twice from 6:53 and 07:10). She went into Asystole, V.fib, PEA Encephalopathy due to multifactorial: Large bleed and also Toxic encephalopathy (alcohol and amphetamine), medication use (Ativan, Propofol). Significant alcohol use wi Polysubstance use (Benzo, Amphetamine, Marijuana) History of alcohol use Plan: I ordered CT angiography of the head and neck to rule out any aneurysm or arteriovenous malformation which seems unlikely that the cause. ICU attending I gave the patient mannitol one-time dose. I'll start the patient on 3% hypertonic saline for edema. Goal Sodium is 145-155. ICU attending the gave one-time Keppra as a seizure prophylaxis. I started the patient on maintenance of 500 every 12 hours for seizure prophylaxis. Patient did not have seizure yet In EEG stat is ordered by ICU team I ordered ammonia level. Keep head of the bed at 30. Q1 hour neuro checks. She needs to be a evlaluated by a neurosurgeon stat for evacuation of the subdural. We'll place the patient on cryoprecipitate 10U for the bleed. Continue thiamine 100 mg daily as well as folate Please avoid any antiplatelet or anticoagulation. We'll defer the rest of the medical management to primary and ICU team Patient condition is critical. The plan is discussed with the patient's primary team and ICU nurse. I have also updated the patient Grand-mother (who is next of kin). Thank you for the consultation I have spend a total of 40 minutes caring for this patient, reviewing images/labs and going over the plan with different team members. Time with Patient: Greater than 30
--- NOTE | 2022-04-27 14:20 | P.DS ---
Providers Date of admission: 04/27/22 02:12 Expected date of discharge: 04/27/22 Attending physician: Sadiq Jeffries MD Consults: 04/27/22 08:40 Consult Physician Stat Consulting Provider: Rufino Houston Consult Reason/Comments: ICU mgmt Do you want consulting provider notified?: Already Contacted 04/27/22 11:46 Consult Physician Stat Consulting Provider: Kishan Cook Consult Reason/Comments: Brain Bleed noted Do you want consulting provider notified?: Already Contacted Primary care physician: Stated None Hospital Course: Discharge Diagnosis: Acute left subdural hematoma with midline shift Status post cardiac arrest Neurogenic shock History of alcohol use Alcohol withdrawal Polysubstance use Hospital Course: Patient is a 36-year-old female with a PMH of EtOH abuse who presents to the emergency room with complaints of alcohol withdrawal. The patient reported that she has been drinking a fifth of hard liquor daily for the past 2 years and that she is currently trying to quit. Reports that her last drink was 2-3 days ago, and that her shakiness and gradually worsened, which prompted her to come to the emergency room. She denied history of delirium tremens or alcohol withdrawal seizures. Stated that she is only once attempted to quit in the past which was unsuccessful due to worsening shakiness. She denied any additional complaints. He denied experiencing headaches, vision changes, chest discomfort, shortness of breath, fever, chills, cough, nausea, vomiting, abdominal pain, diarrhea. In the emergency room, the patient's pulse upon presentation was 1:30. BP 149/99 and SpO2 95% on room air. EKG had revealed sinus rhythm with no ST/T-wave changes noted as reviewed by me. Laboratory evaluation was remarkable for urine tox positive for amphetamines, benzodiazepines, marijuana, and AST 488, ALT 63, total bilirubin 1.8, and sodium 147. Patient was initially admitted for alcohol withdrawal. Patient found to be unresponsive at 0653 while in the ED. Patient found to be pulseless. ED attending present at bedside. CPR done on and off since patient had ROSC intermittently. 2 times shock delivered for V. fib rhythm. Epi 4. Am iodarone 300 bolus 1, amiodarone 150 bolus 1, bicarb 2, atropine 1, and magnesium 1. CPR stopped due to ROSC at 0712. Patient intubated during code. Patient transferred to the ICU on pressors. Patient found to have unequal pupil size, stat noncontrast head CT obtained. CT head showed acute left subdural hematoma with mass effect and midline shift to the right of 1.4 cm. CTA showed similar findings as well as dilation of right temporal horn suggestive of uncal herniation, no evidence of high-grade stenosis or intracranial aneurysms. Patient remains intubated and sedated. Currently on IV Keppra, amiodarone drip, norepinephrine drip, propofol drip. Patient to be given cryoprecipitate. Patient pending transfer to [facility] for higher level of care and neurosurgery. Patient seen and examined at bedside. Vital signs reviewed and stable. General: Intubated and sedated Derm: warm, dry Head: atraumatic, normocephalic, symmetric Eyes: Left pupil greater than right Mouth: no lip lesion, mucus membranes moist Cardiovascular: S1S2 reg, no murmur Lungs: Rhonchorous breath sounds bilaterally Abdominal: soft, nontender to palpation, no guarding, no appreciable organom egaly Ext: no gross muscle atrophy, no edema, no contractures Neuro: Sedated Psych: Unable to assess A total of 45 minutes of time were spent preparing this complex discharge summary. Patient was discharged on 04/27/22 at 14:20. Patient Condition at Discharge: Critical Plan - Discharge Summary New Discharge Prescriptions: Continue No Known Home Medications Discharge Medication List No Known Home Medications 04/26/22 [History] Follow up Appointment(s)/Referral(s): None,Stated [Primary Care Provider] - 1-2 days Discharge Disposition: OTHER INSTITUTION NOT DEFINED
[2022-04-27 14:43] LABS: Band Neutrophils % 3 %; Basophils # (M) 0.13 k/uL (0-0.2); Lymphocytes # (M) 1.56 k/uL (1.0-4.8); Metamyelocytes # (M) 0.26 k/uL (0); Metamyelocytes % 2 %; Monocytes # (M) 0.39 k/uL (0-1.0); Neutrophils % (M) 81 %; Nucleated Red Blood Cells 0 /100 WBC (0-0); Total Cells Counted 200
[2022-04-27] MEDS: LORazepam 2 MG/ML INJ IV PRN (15:50)
[2022-04-27 16:07] VITALS: TEMP 98.2
[2022-04-27 17:07] VITALS: BP 98/42; PULSE 68; RESP 28
[2022-04-27] MEDS ORDERED: THIAMINE 100 MG in SODIUM CHLORIDE 0.9% 50 ML IVPB SCH (21:00)
[2022-04-27] MEDS ORDERED: levETIRAcetam IV 500 MG in SODIUM CHLORIDE 0.9% 100 ML IVPB SCH (21:00)
== END 2022-04-27 17:35 | disposition other institution (70) | DRG 64 ==
LOC: EC 11:14 → 4SSUR 04-27 02:12 → 2SICU 04-27 07:05
PROVIDERS: ADMIT Internal Medicine; ATTEND Internal Medicine
PROC: 5A1935Z Respiratory Ventilation, Less than 24 Consecutive Hours (ICD-10-PCS; principal; 2022-04-27)
PROC: 0BH17EZ Insertion of Endotracheal Airway into Trachea, Via Natural or Artificial Opening (ICD-10-PCS; 2022-04-27)
PROC: 5A12012 Performance of Cardiac Output, Single, Manual (ICD-10-PCS; 2022-04-27)
PROC: 02HV33Z Insertion of Infusion Device into Superior Vena Cava, Percutaneous Approach (ICD-10-PCS; 2022-04-27)
PROC: 4A133B1 Monitoring of Arterial Pressure, Peripheral, Percutaneous Approach (ICD-10-PCS; 2022-04-27)
PROC: 4A133J1 Monitoring of Arterial Pulse, Peripheral, Percutaneous Approach (ICD-10-PCS; 2022-04-27)
PROC: 03HY32Z Insertion of Monitoring Device into Upper Artery, Percutaneous Approach (ICD-10-PCS; 2022-04-27)
PROC: 3E033XZ Introduction of Vasopressor into Peripheral Vein, Percutaneous Approach (ICD-10-PCS; 2022-04-27)
DX: I62.00 Nontraumatic subdural hemorrhage, unspecified (principal); G92.9 Unspecified toxic encephalopathy; I46.2 Cardiac arrest due to underlying cardiac condition; I49.01 Ventricular fibrillation; R57.8 Other shock; G93.5 Compression of brain; F10.231 Alcohol dependence with withdrawal delirium; R00.1 Bradycardia, unspecified; F10.229 Alcohol dependence with intoxication, unspecified; F15.10 Other stimulant abuse, uncomplicated; Z20.822 Contact with and (suspected) exposure to COVID-19; F12.10 Cannabis abuse, uncomplicated; R00.0 Tachycardia, unspecified; F13.10 Sedative, hypnotic or anxiolytic abuse, uncomplicated; I08.3 Combined rheumatic disorders of mitral, aortic and tricuspid valves; I95.9 Hypotension, unspecified; K70.9 Alcoholic liver disease, unspecified; K70.10 Alcoholic hepatitis without ascites; Z71.6 Tobacco abuse counseling; Z71.41 Alcohol abuse counseling and surveillance of alcoholic; Z71.51 Drug abuse counseling and surveillance of drug abuser
CPT/HCPCS: 31500; 36415; 70450; 70496; 70498; 71045; 80048; 80053; 80306; 82075; 82550; 82803; 82805; 83605; 83735; 83880; 84295; 85025; 85610; 85730; 86850; 86900; 86901; 87070; 87205; 87635; 92950; 93005; 93306; 94002; 94640; 96361; 96365; 96366; 96367; 96368; 96372; 96375; 96376; 99291; 99292